=== PATIENT | female | born 1970 | race Hispanic/Latino ===

== ENCOUNTER 2020-07-27 00:03 | Emergency (ER) | payer MEDICARE, OTHER ==
[~2020-07-27] VITALS: Ht 165.1 cm; Wt 74.4 kg
[~2020-07-27 00:03] MED LIST: ASPI-485 PO; ATOR40TA PO; CARV12.5 PO; ESCI5TAB7 PO; MYCO360T3 PO; NIFE60TA2 PO; PRED2.5T PO; SPIR50TA PO; TACR1CAP5 PO
[2020-07-27 00:07] VITALS: BP 188/104
[2020-07-27 00:08] VITALS: BP 198/99
[2020-07-27] MEDS ORDERED: NS 1000ML 1,000 ML IV STA (00:10)
[2020-07-27] MEDS ORDERED: NS 1000ML 1,000 ML ONE (00:17)
--- NOTE | 2020-07-27 00:17 | ER.PDOC ---
General Chief Complaint: Requesting Medical Care Stated Complaint: CHEST PAIN Time seen by MD: 00:01 Source: patient, EMS Exam Limitations: no limitations History of Present Illness Initial Comments Patient c/o substernal chest pressure and severe headache. EMS noted initial BP 220/120. Their EKG was NSR. They gave 324 ASA and 1 dose 400 mcg nitroglycer ine which patient states reduced pain from 8 to 5. Severity/Quality: moderate, severe, pressure Radiation: no radiation Activities at Onset: rest Prior CP/Workup: Cardiac Cath, Heart Attack Nitro Today/Relief: 0.4 mg x 1, Provided By EMS, Mild Relief Aspirin Today: 81 mg x 4, Provided By EMS Associated Symptoms: shortness of breath Allergies: Coded Allergies: No Known Allergies (Unverified , 02/05/18) Home Meds Reported Medications Aspirin (ASPIR 81) 81 Mg Tablet.dr, 1 TAB PO DAILY, #30 TAB 5 Refills 02/05/18 Escitalopram Oxalate (LEXAPRO) 5 Mg Tablet, 1 TAB PO DAILY, #30 TAB 2 Refills 02/05/18 Spironolactone 50MG (ALDACTONE 50MG) 50 Mg Tablet, 1 TAB PO DAILY, #30 TAB 3 Refills 02/05/18 Nifedipine (PROCARDIA XL) 60 Mg Tab.er.24, 1 TAB PO DAILY, #90 TAB 1 Refill 02/05/18 Carvedilol 12.5MG (COREG 12.MG) 12.5 Mg Tablet, 1 TAB PO BID, #180 TAB 1 Refill 02/05/18 Atorvastatin 40MG (LIPITOR 40MG) 40 Mg Tablet, 1 TAB PO DAILY, #30 TAB 5 Refills 02/05/18 Prednisone (PREDNISONE) 2.5 Mg Tablet, 5 MG PO DAILY24, TABLET 02/05/18 Tacrolimus (PROGRAF) 1 Mg Capsule, 2 CAP PO HS, #360 CAP 3 Refills 02/05/18 Tacrolimus (PROGRAF) 1 Mg Capsule, 3 CAP PO DAILY24, #540 CAP 3 Refills 02/05/18 Mycophenolate Sodium (Mycophenolic Acid) 360 Mg Tablet.dr, 360 MG PO BID 02/05/18 Past Medical History Medical History: cardiac problems, other (renal failure with transplant (is on anti-rejection therapy)) Surgical History: cholecystectomy, , hysterectomy Social History Smoking: non-smoker Alcohol Use: none Drug Use: none Constitutional: no symptoms reported EENTM: no symptoms reported Respiratory: shortness of breath Cardiovascular: chest pain Gastrointestinal: no symptoms reported Genitourinary: no symptoms reported Musculoskeletal: no symptoms reported Skin: no symptoms reported Psychiatric/Neurological: no symptoms reported Physical Exam General Appearance: No Apparent Distress, WD/WN HEENT: PERRL/EOMI Respiratory: lungs clear, normal breath sounds, no respiratory distress, no accessory muscle use Cardiovascular: Regular Rate, Rhythm Gastrointestinal: Normal Bowel Sounds, No Pulsatile Mass, Non Tender Extremities: Non-Tender, No Pedal Edema, No Calf Tenderness Neurologic/Psychiatric: Alert, Normal Mood/Affect, Oriented x 3 Skin: Normal Color, Warm/Dry Progress Progress nitro x 3 relieved pain completely; first enzymes and ekg are WNL; patient requests to be transferred to 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 Reason/Comments: Dr. Km Mittal, ERP accepting Departure Time of Disposition: 01:31 Disposition: 02 XFER SHT-TRM HOSP Impression: Primary Impression: Chest pain Additional Impressions: ACS (acute coronary syndrome) Renal transplant recipient Condition: Improved Referrals: CALI YUNG (PCP) PRIMARY CARE PROVIDER Duration or Time Spent with Pa: 20 min Problem Qualifiers Primary Impression: Chest pain Chest pain type: precordial pain Qualified Codes: R07.2 - Precordial pain MARK MONROE DO Jul 27, 2020 00:17
[2020-07-27] MEDS ORDERED: NITROSTAT SL ONE (00:18)
--- NOTE | 2020-07-27 00:24 | PCM.EKG ---
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
[2020-07-27 00:30] VITALS: BP 141/78
[2020-07-27] MEDS ORDERED: NITROSTAT SL PRN (00:30)
[2020-07-27 00:32] LABS: BASOPHIL % 0.5 % (0.0-0.2); EOSINOPHIL # 0.1 10^3/uL (0.0-0.2); EOSINOPHIL % 1.3 % (0.0-5.0); LYMPHOCYTES % 36.3 % (24.0-44.0); MONOCYTES # 0.5 10^3/uL (0.3-0.8); MONOCYTES % 12.2 % (5.0-12.0); NEUTROPHIL # 1.9 10^3/uL (1.8-7.7); NEUTROPHILS % 49.7 % (41.0-85.0); PLATELET COUNT 133 10^3/uL (150-400); RED CELL DISTRIBUTION WIDTH 12.5 % (11.5-14.5)
--- NOTE | 2020-07-27 00:55 | DIREP ---
PROCEDURE:CHEST 1 VIEW COMPARISON:[facility], CR, XRAY CHEST SINGLE VW, 04/07/2018, 09:18 PM. [facility], CR, XRAY CHEST SINGLE VW, 02/05/2018, 04:37 PM. INDICATIONS:chest pain FINDINGS: LUNGS/PLEURA:Shallow inspiration with crowding of the pulmonary vascular markings. No focal consolidation. No effusions. VASCULATURE:Normal. Unremarkable pulmonary vasculature. CARDIAC:Normal. No cardiac silhouette abnormality or cardiomegaly. MEDIASTINUM:Normal. No visible mass or adenopathy. BONES:Normal. No fracture or visible bony lesion. OTHER:Negative. CONCLUSION:No acute findings. Dictated by: Will Ruff MD on 07/27/2020 at 00:53 AM
[2020-07-27 00:56] LABS: ALANINE AMINOTRANSFERASE(ML) 41 U/L (12-78); ALKALINE PHOSPHATASE 106 U/L (50-136); ASPARTATE AMINO TRANSFERASE 27 U/L (0-35); CALCIUM 9.1 mg/dL (8.4-10.5); CARBON DIOXIDE 22.7 mmol/L (20.0-32); GLUCOSE 118 mg/dL (70-110)
[2020-07-27 01:00] VITALS: BP 145/80
[2020-07-27] MEDS ORDERED: NITRO-BID TD ONE (01:23)
[2020-07-27] MEDS ORDERED: ZOFRAN ONE (01:29)
[2020-07-27] MEDS ORDERED: MORPHINE SULFATE ONE (01:29)
[2020-07-27 01:35] VITALS: BP 140/71
--- NOTE | 2020-07-27 01:58 | NUR ---
EMS ARRIVED FOR TRANSFER
[2020-07-27 02:00] VITALS: BP 145/74
--- NOTE | 2020-07-27 02:18 | NUR ---
[facility] CALLED FOR REPORT, SPOKE WITH YULIA GAYTAN
== END 2020-07-27 02:21 | disposition short-term general hospital (02) ==
LOC: ER 00:03 → EDBD 00:03 → ER 02:21
DX: I24.9 Acute ischemic heart disease, unspecified (principal); R07.89 Other chest pain; N19 Unspecified kidney failure; Z90.49 Acquired absence of other specified parts of digestive tract; Z90.710 Acquired absence of both cervix and uterus; Z79.82 Long term (current) use of aspirin
CPT/HCPCS: 36415; 71045; 80053; 82550; 82553; 83880; 84484; 85025; 85610; 85730; 86677; 93005; 96360; 99285; J2270; J2405; J7030